=== PATIENT | male | born 1985 | race Caucasian/White ===

== ENCOUNTER 2021-04-30 15:56 | Emergency (ER) | payer BC, SELFPAY ==
[2021-04-30 16:03] VITALS: BP 145/85; PULSE 71; RESP 20; TEMP 36.6; O2SAT 100
[2021-04-30 16:09] VITALS: BP 145/85; PULSE 71; RESP 20; TEMP 36.6; O2SAT 100
--- NOTE | 2021-04-30 16:14 | ED.SKABFB ---
HPI - Skin/Abscess/Foreign Bdy General Chief complaint: Skin/Abscess/Foreign Body Stated complaint: Rash Rt Hand Time Seen by Provider: 04/30/21 16:10 Source: patient and RN notes reviewed Mode of arrival: ambulatory Limitations: no limitations History of Present Illness HPI narrative: Surjit is a 35-year-old male patient who ambulated into the [facility]. Patient states he has had a red rash on his right thumb for 2-1/2 weeks. Patient was treating with Lotrimin because it had a half [place] shape. No improvement is noted. He then used bacitracin for the last week. With no improvement. Patient states he has occasional itching to the area and new blisters have occurred. MD complaint: rash Related Data Allergies Allergy/AdvReac Type Severity Reaction Status Date / Time No Known Allergies Allergy Unverified 11/29/17 14:59 Review of Systems Review of Systems: CONSTITUTIONAL: Denies body aches, fever, chills, or sweats. EYES: Denies visual changes, redness, or discharge. ENT: Denies rhinorrhea, congestion, sore throat, or otalgia. CARDIOVASCULAR: Denies chest pain, palpitations, or edema. RESPIRATORY: Denies cough or dyspnea. GASTROINTESTINAL: Denies abdominal pain, nausea, vomiting, or diarrhea. GENITOURINARY: Denies dysuria or hematuria. SKIN: Denies itching, or wounds.right thumb rash MUSCULOSKELETAL: Denies back pain, joint pain, or myalgia. NEUROLOGIC: Denies headache, numbness, tingling, or weakness. PSYCH: Denies depression or anxiety. All systems reviewed & are unremarkable except as noted in HPI and below Exam Narrative: GENERAL: Well-appearing, well-nourished, and in no acute distress. HEAD: Normocephalic, atraumatic. EYES: EOMI. No redness or drainage. Conjunctivae normal. ENT: Mucous membranes pink and moist. Nares clear. No rhinorrhea. TMs normal bilaterally. Throat normal. Uvula midline. NECK: Normal AROM. Supple. No lymphadenopathy. CHEST: No respiratory distress. Clear to auscultation. HEART: Regular rate and rhythm. No murmur appreciated. Normal peripheral pulses. ABDOMEN: Soft, nontender, nondistended, normal active bowel sounds. MUSCULOSKELETAL: No bony tenderness. EXTREMITIES: Normal range of motion. No edema. SKIN: Warm, dry, Capillary refill normal. Normal skin turgor. Small quarter sized area of maculopapular rash. Scattered throughout the right thumb. No erythema or abrasions noted NEURO: No focal deficits. Alert and oriented x3. Gait steady. PSYCH: Normal affect. No signs of depression or anxiety. Course Vital Signs Vital signs: Vital Signs Temperature 36.6 C 04/30/21 16:03 Pulse Rate 71 04/30/21 16:03 Respiratory Rate 20 04/30/21 16:03 Blood Pressure 145/85 H 04/30/21 16:03 Pulse Oximetry 100 04/30/21 16:03 Temperature 36.6 C 04/30/21 16:09 Pulse Rate 71 04/30/21 16:09 Respiratory Rate 20 04/30/21 16:09 Blood Pressure 145/85 H 04/30/21 16:09 Pulse Oximetry 100 04/30/21 16:09 MDM - Skin/Abscess/Foreign Bdy Differential Diagnosis Differential diagnosis: Likely abscess of skin or subcutaneous tissue, urticaria, allergic reaction to drug and contact dermatitis Critical Care Time Critical Care Time Critical Care Time: No Discharge Plan Discharge Clinical Impression: Contact dermatitis Qualifiers: Contact dermatitis type: irritant Contact dermatitis trigger: non-food plants Qualified Code(s): L24.7 - Irritant contact dermatitis due to plants, except food Patient Disposition: Home, Self-Care Condition: Stable Instructions: Antibiotic Form, Contact Dermatitis (ED) Additional Instructions: Wash area with mild soap such as Dial twice daily. Use steroid cream 3 times a day. Follow-up with your primary care physician in 7 to 10 days for continued complaints. Your blood pressure was elevated above 120/80 today at Urgent Care. This puts you above the threshold for follow up. Please schedule a followup visit with your personal physici
== END 2021-04-30 16:20 | disposition home or self-care (01) ==
PROVIDERS: Emergency Provider Nurse Practitioner Family
DX: L24.7 Irritant contact dermatitis due to plants, except food (principal)
CPT/HCPCS: 99203; G0463

== ENCOUNTER 2022-06-23 14:30 | Emergency (ER) | payer BC, SELFPAY ==
[2022-06-23 14:36] VITALS: BP 128/82; PULSE 82; RESP 16; TEMP 37.3; O2SAT 98
--- NOTE | 2022-06-23 14:57 | ED.GENADULT ---
HPI - General Adult General Chief complaint: Skin/Abscess/Foreign Body Stated complaint: lump on rt buttocks Source: patient Mode of arrival: ambulatory Limitations: no limitations History of Present Illness HPI narrative: Patient presents for evaluation of a painful lump to the right buttock following testosterone intramuscular injection in that area three days ago. No fever, chills, nausea, vomiting, significant redness or drainage from the area. at his current dose of testosterone is 0.75 mL of 200 mg/ml every two weeks. No hx of similar symptoms. He recently started with testosterone injections so was unsure whether this was a typical finding following injections. He is not diabetic. He does not smoke. Related Data Allergies Allergy/AdvReac Type Severity Reaction Status Date / Time No Known Allergies Allergy Unverified 06/23/22 14:40 Review of Systems Review of Systems: CONSTITUTIONAL: Denies fever, chills, or sweats. EYES: Denies visual changes, redness, or discharge. ENT: Denies rhinorrhea, congestion, sore throat, or otalgia. CARDIOVASCULAR: Denies chest pain, palpitations, or edema. RESPIRATORY: Denies cough or dyspnea. GASTROINTESTINAL: Denies abdominal pain, nausea, vomiting, or diarrhea. GENITOURINARY: Denies dysuria or hematuria. SKIN: reports painful lump to the right buttock MUSCULOSKELETAL: Denies back pain, joint pain, or myalgia. NEUROLOGIC: Denies headache, numbness, dizziness, or weakness. PSYCHIATRIC: Denies anxiety or depression. [facility] Past Medical History Medical History Hypogonadism Surgical History Surgical History History of shoulder surgery Family History Family History (Updated 06/23/22 @ 15:01 by CAROL Parker, ) Mother Diabetes mellitus Heart disease Father Heart disease Diabetes mellitus Social History Social History (Updated 06/23/22 @ 15:02 by CAROL Parker, ) Smoking status: Never smoker Alcohol intake: never Substance use: never Gender identity (if verbalized by the patient): Male Sexual Orientation (if Verbalized by the Patient): Straight or Heterosexual Spiritual care concerns: No Exam Narrative: GENERAL: Well-appearing, well-nourished, and in no acute distress. HEAD: Normocephalic, atraumatic. EYES: PERRLA and EOMI. ENT: Nares clear, no rhinorrhea or epistaxis. Mucous membranes moist. Oropharynx without tonsillar hypertrophy exudate or other lesions. Bilateral TMs pearly cisneros nonbulging NECK: Supple. No adenopathy or masses. No carotid bruits or JVD CHEST: Clear to auscultation. No respiratory distress. No wheezes rales or rhonchi HEART: Regular rate and rhythm. No murmur heard. Normal peripheral pulses. ABDOMEN: Soft, nontender, nondistended, normal active bowel sounds. EXTREMITIES: Normal range of motion. No edema. SKIN: There is a 1.5 cm area of induration to the right upper outer quadrant of the right buttock without any overlying skin changes her fluctuance. Warm, dry, no rash. NEURO: No focal deficits. Alert and oriented x3. PSYCH: Normal mood and affect. Course Course Emergency Course: This is a 37-year-old male who presented for evaluation of indurated painful area to the right buttock. Exam is consistent with injection site reaction. There is no evidence of infection on exam. Encouraged application of warm moist heat. Ibuprofen should help with pain. Follow up with primary provider. Educated on signs of infection and advised to go to ER for such findings. Pt in agreement with plan of care. Level of Care: Express Care Visit Vital Signs Vital signs: Vital Signs Temperature 37.3 C 06/23/22 14:36 Pulse Rate 82 06/23/22 14:36 Respiratory Rate 16 06/23/22 14:36 Blood Pressure 128/82 06/23/22 14:36 Pulse Oximetry 98 06/23/22 14:36 Temperature 37.3 C
== END 2022-06-23 15:00 | disposition home or self-care (01) ==
PROVIDERS: Emergency Provider Nurse Practitioner
DX: R22.2 Localized swelling, mass and lump, trunk (principal); T80.89XA Other complications following infusion, transfusion and therapeutic injection, initial encounter
CPT/HCPCS: 99211; G0463